=== PATIENT | male | born 1980 | race Caucasian/White ===

== ENCOUNTER 2017-01-20 12:52 | Emergency (ER) | payer SELFPAY ==
[2017-01-20] MEDS ORDERED: LORazepam 1 MG Tab PO ONE (13:26)
--- NOTE | 2017-01-20 13:39 | EDM.PDOC ---
ED HPI GENERAL MEDICAL PROBLEM - General Chief Complaint: Respiratory Problem Stated Complaint: SOB Time Seen by Provider: 01/20/17 13:06 Source of Information: Reports: Patient History Limitations: Reports: No Limitations - History of Present Illness INITIAL COMMENTS - FREE TEXT/NARRATIVE: Patient is a 36-year-old male who presents to the E.D complaining of progressive shortness of breath and tingling feeling in his chest. States it has been going on for the past 2 days. Notes he gets worse with stressing out. Has also experienced some numbness into into his fingers and toes with breathing faster. States he has been under a lot more stress recently and has been having minimal sleep due to work. Note some excessive yawning and taking a lot of deep breaths. He is mildly short of breath with exertion. There's been no cough, fever, chest pain, nausea/vomiting, dizziness, pre-syncope/syncopal episode or any additional complaints. He has no history of DVT/PE. He has been utilizing albuterol inhaler that was prescribed by a provider at the urgent care clinic in [facility]. He's had no relief with the albuterol. Past medical history vitamin B12 and T3 deficiency Current medications albuterol inhaler, Centrum, B12, and the 3 Patient does not smoke or utilize alcohol occasionally denies recreational drug use. Onset Date: 01/18/17 Duration: Intermittent Location: Reports: Chest Associated Symptoms: Reports: Shortness of Breath. Denies: Cough, Diaphoresis, Fever/Chills, Nausea/Vomiting, Syncope, Weakness Treatments [employer]: Reports: Other (see below) (see hpi) Chest Pain Score (Numeric/FACES): 5 - Related Data Allergies Allergy/AdvReac Type Severity Reaction Status Date / Time No Known Allergies Allergy Verified 01/20/17 13:01 Home Meds: Home Meds Cyanocobalamin (Vitamin B12) [Vitamin B12] 1 unit PO DAILY 01/20/17 [History] Ergocalciferol (Vitamin D2) [Vitamin D] 1 unit PO DAILY 01/20/17 [History] Past Medical History Gastrointestinal History: Reports: Pancreatitis Hematologic History: Reports: Anemia, B12 Deficiency Social & Family History - Tobacco Use Smoking Status *Q: Never Smoker - Caffeine Use Caffeine Use: Reports: None - Recreational Drug Use Recreational Drug Use: No ED ROS GENERAL - Review of Systems Review Of Systems: See Below Constitutional: Reports: No Symptoms HEENT: Reports: Sinus Problem. Denies: Ear Pain, Throat Pain, Vertigo, Vision Change Respiratory: Reports: Shortness of Breath. Denies: Cough, Sputum Cardiovascular: Reports: Palpitations (occassionally at night). Denies: Chest Pain, Dyspnea on Exertion, PND, Syncope GI/Abdominal: Denies: Abdominal Pain, Constipation, Diarrhea, Nausea, Vomiting : Reports: No Symptoms Musculoskeletal: Reports: No Symptoms Neurological: Denies: Dizziness ED EXAM, GENERAL - Physical Exam Exam: See Below Exam Limited By: No Limitations General Appearance: Alert, WD/WN, No Apparent Distress Eye Exam: Bilateral Eye: EOMI, PERRL Ears: Hearing Grossly Normal Nose: Normal Inspection Throat/Mouth: Normal Voice, No Airway Compromise Neck: Normal Inspection, Supple, Non-Tender. No: Lymphadenopathy (L), Lymphadenopathy (R) Respiratory/Chest: No Respiratory Distress, Lungs Clear, Normal Breath Sounds, No Accessory Muscle Use, Chest Non-Tender Cardiovascular: Normal Peripheral Pulses, Regular Rate, Rhythm, No Murmur Peripheral Pulses: 2+: Radial (L), Radial (R) GI/Abdominal: Normal Bowel Sounds, Soft, Non-Tender, No Organomegaly, No Distention, No Mass Back Exam: Normal Inspection Extremities: Normal Inspection, Non-Tender, No Pedal Edema, Normal Capillary Refill Neurological: Alert, Oriented, CN II-XII Intact, Normal Cognition, No Motor/ Sensory Deficits Psychiatric: Normal Affect, Normal Mood Skin Exam: Warm, Dry, Intact, Normal Color, No Rash Course - Vital Signs Last Recorded V/S: Last Vital Signs Temp 98.3 F 01/20/17 12:57 Pulse 87 01/20/17 12:57 Resp 18 01/20/17 12:57 BP 138/86 01/20/17 12:57 Pulse Ox 98 01/20/17 12:57 - Orders/Labs/Meds Orders: Active Orders 24 hr Category Date Time Status EKG Documentation Completion [RC] STAT Care 01/20/17 13:26 Active Chest 2V [CR] Stat Exams 01/20/17 13:25 Taken Labs: Laboratory Tests 01/20/17 01/20/17 Range/Units 13:36 13:36 WBC 5.29 (4.23-9.07) K/mm3 RBC 4.60 L (4.63-6.08) M/mm3 Hgb 14.4 (13.7-17.5) gm/L Hct 40.2 (40.1-51.0) % MCV 87.4 (79.0-92.2) fl MCH 31.3 (25.7-32.2) pg MCHC 35.8 H (32.2-35.5) g/dl RDW Std Deviation 37.2 (35.1-43.9) fL Plt Count 275 (163-337) K/mm3 MPV 8.5 L (9.4-12.3) fl Neut % (Auto) 62.5 (34.0-67.9) % Lymph % (Auto) 27.6 (21.8-53.1) % [place] % (Auto) 9.1 (5.3-12.2) % Eos % (Auto) 0.4 L (0.8-7.0) Baso % (Auto) 0.4 (0.1-1.2) % Neut # (Auto) 3.31 (1.78-5.38) K/mm3 Lymph # (Auto) 1.46 (1.32-3.57) K/mm3 [place] # (Auto) 0.48 (0.30-0.82) K/mm3 Eos # (Auto) 0.02 L (0.04-0.54) K/mm3 Baso # (Auto) 0.02 (0.01-0.08) K/mm3 Sodium 138 (136-145) mEq/L Potassium 4.0 (3.5-5.1) mEq/L Chloride 103 (98-107) mEq/L Carbon Dioxide 26 (21-32) mEq/L Anion Gap 13.0 (5-15) BUN 14 (7-18) mg/dL Creatinine 1.1 (0.7-1.3) mg/dL Est Cr Clr Drug Dosing 95.86 mL/min Estimated GFR (MDRD) > 60 (>60) mL/min BUN/Creatinine Ratio 12.7 L (14-18) Glucose 78 (74-106) mg/dL Calcium 8.7 (8.5-10.1) mg/dL Total Bilirubin 0.4 (0.2-1.0) mg/dL AST 24 (15-37) U/L ALT 39 (16-63) U/L Alkaline Phosphatase 87 (46-116) U/L Troponin I < 0.017 (0.00-0.056) ng/mL Total Protein 7.5 (6.4-8.2) g/dl Albumin 4.1 (3.4-5.0) g/dl Globulin 3.4 gm/dL Albumin/Globulin Ratio 1.2 (1-2) TSH 3rd Generation 0.952 (0.358-3.74) uIU/mL Meds: Medications Discontinued Medications Generic Name Dose Route Start Last Admin Trade Name Freq PRN Reason Stop Dose Admin Lorazepam 1 mg 01/20/17 13:26 01/20/17 13:37 Ativan PO 01/20/17 13:27 1 mg ONETIME ONE Administration - Re-Assessments/Exams Free Text/Narrative Re-Assessment/Exam: 01/20/17 13:38 Ordered Ativan 1 mg p.o., CBC, chem 14, troponin, TSH, chest x- ray, and EKG. EKG sinus rhythm at a rate of 69 with normal P axis. QTC 404, IL interval is 110. No acute ST changes noted. Chest x-ray did not elicit any acute findings. Final interpretation is pending. Dr. Mendez reviewed x-ray. Labs reviewed did not reveal any concerning findings. 1437 Reassessment, symptoms have improved with the Ativan therapy. Suggesting this is associated with anxiety/stress. Patient is ready to be discharged home. We'll discharge patient home with instructions as documented Departure - Departure Time of Disposition: 14:58 Disposition: Home, Self-Care 01 Condition: good Clinical Impression: Anxiety disorder, unspecified Qualifiers: Anxiety disorder type: unspecified anxiety disorder Qualified Code(s): F41.9 - Anxiety disorder, unspecified - Discharge Information Referrals: Vivian Chilel PA [Physician [employer]] - Forms: ED Department Discharge, Return to Work/School Form Additional Instructions: As discussed labs and CXR did not elicit any concerning findings. Symptoms improved after being administered ativan. Suggesting this was associated with anxiety brought on by stress. Thus will have you followup with a PCP this coming week at [facility] for reevaluation and treatment. No driving today since receiving sedative medication. Get adequate sleep. Find time to do things you enjoy other then work. Stay away from alcohol use. Return to the E.D. for any new or worsening symptoms. - My Orders Last 24 Hours: My Active Orders 01/20/17 13:25 Chest 2V [CR] Stat 01/20/17 13:26 EKG Documentation Completion [RC] STAT - Assessment/Plan Last 24 Hours: My Active Orders 01/20/17 13:25 Chest 2V [CR] Stat 01/20/17 13:26 EKG Documentation Completion [RC] STAT
[2017-01-20 16:01] VITALS: BP 116/80
--- NOTE | 2017-01-22 08:03 | CR ---
Chest: Two views of the chest were obtained. Comparison: No previous chest x-ray. Heart size and mediastinum are normal. Lungs are clear. Bony structures are unremarkable for the patient's age. Impression: 1. Nothing acute is identified on two-view chest x-ray. Diagnostic code #1
== END 2017-01-20 15:20 | disposition home or self-care (01) ==
LOC: JD.ED 12:52
DX: F41.9 Anxiety disorder, unspecified (principal); Z79.899 Other long term (current) drug therapy; Z86.2 Personal history of diseases of the blood and blood-forming organs and certain disorders involving the immune mechanism
CPT/HCPCS: 36415; 71020; 80053; 84443; 84484; 85025; 93005; 99285; A9270; 99283